=== PATIENT | male | born 1940 | race Hispanic/Latino ===

== ENCOUNTER 2019-11-28 11:15 | Inpatient (IN) | payer MEDICARE, OTHER ==
[~2019-11-28] VITALS: Ht 172.7 cm; Wt 87.5 kg
[2019-11-28] MEDS ORDERED: IBUPROFEN 600 MG TAB PO STA (13:01)
--- NOTE | 2019-11-28 13:32 | NUR ---
PER ER MD PATIENT HAD A RUN OFF IRREGULAR HEART RHYTHM POSSIBLE VTACH.
[2019-11-28 13:34] LABS: BASOPHILS % 0.2 % (0.0-1.0); EOSINOPHILS % 0.1 % (0.0-6.0); HEMATOCRIT 35.1 % (38.2-49.6); HEMOGLOBIN 11.3 g/dL (14.0-18.0); LYMPHOCYTES # (AUTO) 0.5 (1.0-3.2); LYMPHOCYTES % 4.7 % (18.0-39.1); MEAN CORPUSCULAR HEMOGLOBIN 30.1 pg (28-32); MEAN CORPUSCULAR HGB CONC 32.2 g/dL (31-35); MEAN CORPUSCULAR VOLUME 93.4 fL (81-99); MONOCYTES # (AUTO) 0.5 (0.2-0.8); MONOCYTES % 4.7 % (4.4-11.3); NEUTROPHILS # (AUTO) 9.3 (2.1-6.9); NEUTROPHILS % 89.7 % (38.7-80.0); PLATELET COUNT 232 x10e3/uL (140-360); RED BLOOD COUNT 3.76 x10e6/uL (4.3-5.7); RED CELL DISTRIBUTION WIDTH 14.9 % (11.7-14.4)
[2019-11-28 13:49] LABS: ALANINE AMINOTRANSFERASE 25 IU/L (0-55); ALBUMIN 3.5 g/dL (3.5-5.0); ALKALINE PHOSPHATASE 97 IU/L (40-150); ANION GAP 14.7 mmol/L (8-16); BLOOD UREA NITROGEN 10 mg/dL (7-26); BUN/CREATININE RATIO 15 (6-25); CALCIUM 10.4 mg/dL (8.4-10.2); CARBON DIOXIDE 23 mmol/L (22-29); CHLORIDE 100 mmol/L (98-107); CREATINE KINASE 163 IU/L (30-200); CREATININE, SERUM 0.68 mg/dL (0.72-1.25); EST GLOMERULAR FILTRATION RATE > 60 ML/MIN (60-); GLUCOSE 372 mg/dL (74-118); POTASSIUM 4.7 mmol/L (3.5-5.1); SODIUM 133 mmol/L (136-145)
[2019-11-28] MEDS ORDERED: AMIODARONE HCL 150 MG/100 ML BAG IV ONE (13:50)
[2019-11-28] MEDS ORDERED: AMIODARONE HCL 900 MG in DEXTROSE 5 % 500ML BOTTLE 500 ML IV SCH (14:00)
[2019-11-28] MEDS ORDERED: INSULIN REGULAR, HUMAN 100 UNIT/1 ML 3ML VIAL SQ ONE (14:15)
--- NOTE | 2019-11-28 14:35 | Diagnostic Imaging Report ---
Examination: CT CERVICAL SPINE WO CONTRAST HISTORY:Neck injury after fall. COMPARISON:None. TECHNIQUE: Multidetector helical axial images were obtained without contrast from the foramen magnum to T1. Coronal and sagittal reformatted images were done. Bone and soft tissue windows were evaluated. Dose modulation, iterative reconstruction, and/or weight based adjustment of the mA/kV was utilized to reduce the radiation dose to as low as reasonably achievable. FINDINGS: Alignment:Normal alignment with straightening of normal lordosis. Vertebrae: Normal height and density. No acute fracture, infection or neoplasm. Disc space heights: Moderately narrowed at C5-C6. Caliber of spinal canal: Developmentally normal. Posterior fossa and craniocervical junction: Foramen magnum patent. No Chiari 1 malformation. Soft tissues: A large dystrophic calcification is identified in the region of the right submandibular gland, measuring 1.8 cm and likely represents a stone within an atrophic gland. Degenerative changes: Severe degenerative narrowing at C1-C2. Diffuse disc osteophyte complexes at C5-C6 and C6-C7 with bilateral uncovertebral and facet arthropathy resulting in severe right and mild left neural foraminal narrowing at C5-C6 and mild bilaterally at C6-C7. No canal stenosis at either level. Bilateral facet arthropathy from C2 through C7. Visualized lung apices: No abnormalities. IMPRESSION: 1. No acute abnormalities, specifically, no acute fracture. 2. Degenerative changes, as above. Signed by: Dr. Caitie Whittaker M.D. on 11/28/2019 2:33 PM
--- NOTE | 2019-11-28 14:40 | NUR ---
UNABLE TO VERIFY HOME MEDICATIONS, WAS PROVIDED LIST BY EMS BUT UNABLE TO OBTAIN DOSAGE. ASKED DAUGHTER WHO WAS AT BEDSIDE TO EITHER CALL PATIENTS PHARMACY AND OR HAVE SOMEONE WHO IS AT PATIENTS HOME TO TAKE A PICTURE OF MEDICATION BOTTLES IN ORDER TO OBTAIN DOSAGES.
[2019-11-28] MEDS ORDERED: KETOROLAC TROMETHAMINE 30 MG/ML VIAL IV STA (15:04)
[2019-11-28] MEDS ORDERED: FINASTERIDE5 MG PO (15:07)
[2019-11-28] MEDS ORDERED: LEVEMIR100 UNIT/1 SC (15:11)
[2019-11-28] MEDS ORDERED: LEXAPRO10 MG PO (15:11)
[2019-11-28] MEDS ORDERED: LASIX40 MG PO (15:11)
[2019-11-28] MEDS ORDERED: FLOMAX0.4 MG PO (15:11)
[2019-11-28] MEDS ORDERED: ASPIR 8181 MG PO (15:11)
--- NOTE | 2019-11-28 15:36 | Diagnostic Imaging Report ---
EXAM: CT Chest WITHOUT intravenous contrast 11/28/2019 12:59 PM INDICATION: Trauma COMPARISON: None TECHNIQUE: Chest was scanned utilizing a multidetector helical scanner from the lung apex through the level of the adrenal glands without administration of IV contrast. Coronal and sagittal reformations were obtained. Routine protocol was performed. IV CONTRAST: None RADIATION DOSE: Total DLP: 695.3 mGy*cm. Dose modulation, iterative reconstruction, and/or weight based adjustment of the mA/kV was utilized to reduce the radiation dose to as low as reasonably achievable. COMPLICATIONS: None FINDINGS: LINES/ TUBES: None. LUNGS AND AIRWAYS: The central airways are patent. Right upper lobe, lower lobe, and left lower lobe dependent subsegmental atelectasis. No focal consolidation or pulmonary edema. No pulmonary contusion. PLEURA: No pneumothorax. No pleural effusion. HEART AND MEDIASTINUM: The thyroid gland is normal. No supraclavicular or axillary lymphadenopathy. Multiple prominent mediastinal lymph nodes not meeting size criteria for lymphadenopathy. No hilar lymphadenopathy. Mild cardiomegaly. No pericardial effusion. Mild scattered atherosclerotic calcifications of the coronary arteries and aorta. UPPER ABDOMEN: No acute findings. BONES: No acute osseous injury. No suspicious lytic or blastic lesions. Mild multilevel degenerative changes of the visualized spine. SOFT TISSUES: Unremarkable. IMPRESSION: No acute traumatic injury to the thorax. No focal pneumonia or pulmonary edema. Dependent subsegmental atelectasis as above. Mild cardiomegaly. Signed by: Joss Marley MD on 11/28/2019 3:33 PM
[2019-11-28] MEDS ORDERED: ONDANSETRON HCL INJ 2MG/ML 2ML 2 MG/ML VIAL IV PRN (15:45)
[2019-11-28] MEDS ORDERED: SODIUM CHLORIDE FLUSH 10 ML SYR IV PRN (15:45)
--- NOTE | 2019-11-28 15:57 | NUR ---
per ER stop Amiodarone drip. stopped medication per his request.
--- NOTE | 2019-11-28 16:12 | NUR ---
recheck blood sugar 342
--- OUTSIDE RECORDS SUMMARY | 2019-11-28 16:20 | XMS REPORT ---
Author Author [facility] Organization [facility] Address Unknown Phone Unavailable Care Team Providers Care Enrollment Consultant Name Role Phone Frankie WELLINGTON Unavailable Unavailable Payers Payer Name Policy Type Policy Number Effective Date Expiration Date Problems This patient has no known problems. Allergies, Adverse Reactions, Alerts Allergy Name Allergy Type Status Severity Reaction(s) Onset Date Inactive Date Treating Clinician Comments No Known Allergies DA Active U 2014-12-27 00:00:00 Medications This patient has no known medications. Results Test Description Test Time Test Comments Text Results Atomic Results Result Comments CT CHEST WO 2019-11-28 15:25:00 [facility] [address] [place] [address] Patient Name: FREDY HAWKINS MR #: [id number] : 1940 Age/Sex: 79/M Req #: [id number] Adm Physician: Ordered by: ETELVINA WELLINGTON MD Report #: [id number] Location: ER Room/Bed: Procedure: [id number] CT/CT CHEST WO Exam Date: 11/28/19 Exam Time: 1330 REPORT STATUS: Signed EXAM: CT Chest WITHOUT intravenous contrast 11/28/2019 12:59 PM INDICATION: Trauma COMPARISON: None TECHNIQUE: Chest was scanned utilizing a multidetector helical scanner from the lung apex through the level of the adrenal glands without administration of IV contrast. Coronal and sagittal reformations were obtained. Routine protocol was performed. IV CONTRAST: None RADIATION DOSE: Total DLP: 695.3 mGy*cm. Dose modulation, iterative reconstruction, and/or weight based adjustment of the mA/kV was utilized to reduce the radiation dose to as low as reasonably achievable. COMPLICATIONS: None FINDINGS: LINES/ TUBES: None. LUNGS AND AIRWAYS: The central airways are patent. Right upper lobe, lower lobe, and left lower lobe dependent subsegmental atelectasis. No focal consolidation or pulmonary edema. No pulmonary contusion. PLEURA: No pneumothorax. No pleural effusion. HEART AND MEDIASTINUM: The thyroid gland is normal. No supraclavicular or axillary lymphadenopathy. Multiple prominent mediastinal ly mph nodes not meeting size criteria for lymphadenopathy. No hilar lymphadenopathy. Mild cardiomegaly. No pericardial effusion. Mild scattered atherosclerotic calcifications of the coronary arteries and aorta. UPPER ABDOMEN: No acute findings. BONES: No acute osseous injury. No suspicious lytic or blastic lesions. Mild multilevel degenerative changes of the visualized spine. SOFT TISSUES: Unremarkable. IMPRESSION: No acute traumatic injury to the thorax. No focal pneumonia or pulmonary edema. Dependent subsegmental atelectasis as above. Mild cardiomegaly. Signed by: Daija Cronin MD on 11/28/2019 3:33 PM Dictated By: DAIJA CRONIN MD [id number] Transcribed By: ARABELLA on 11/28/19 1533 COPY TO: ETELVINA WELLINGTON MD CT CERVICAL SPINE WO 2019-11-28 14:24:00 [place] [address] Patient Name: FREDY HAWKINS MR #: [id number] : 1940 Age/Sex: 79/M Req #: [id number] Adm Physician: Ordered by: ETELVINA WELLINGTON MD Report #: [id number] Location: ER Room/Bed: Procedure: [id number] CT/CT CERVICAL SPINE WO Exam Date: 11/28/19 Exam Time: 1330 REPORT STATUS: Signed Examination: CT CERVICAL SPINE WO CONTRAST HIST ORY:Neck injury after fall. COMPARISON:None. TECHNIQUE: Multidetector helical axial images were obtained without contrast from the foramen magnum to T1. Coronal and sagittal reformatted images were done. Bone and soft tissue windows were evaluated. Dose modulation, iterative reconstruction, and/or weight based adjustment of the mA/kV was utilized to reduce the radiation dose to as low as reasonably achievable. FINDINGS: Alignment:Normal alignment with straightening of normal lordosis. Vertebrae: Normal height and density. No acute fracture, infection or neoplasm. Disc space heights: Moderately narrowed at C5-C6. Caliber of spinal canal: Developmentally normal. Posterior fossa and craniocervical junction: Foramen magnum patent. No Chiari 1 malformation. Soft tissues: A large dystrophic calcification is identified in the region of the right submandibular gland, measuring 1.8 cm and likely represents a stone within an atrophic gland. Degenerative changes: Severe degenerative narrowing at C1-C2. Diffuse disc osteophyte complexes at C5-C6 and C6-C7 with bilateral uncovertebral and facet arthropathy resulting in severe right and mild left neural foraminal narrowing at C5-C6 and mild bilaterally at C6-C7. No canal stenosis at either level. Bilateral facet arthropathy from C2 through C7. Visualized lung apices: No abnormalities. IMPRESSION: 1. No acute abnormalities, specifically, no acute fracture. 2. Degenerative changes, as above. Signed by: Dr. Caitie Whittaker M.D. on 11/28/2019 2:33 PM Dictated By: CAITIE LLAMAS MD 1433 Transcribed By: ARABELLA on 11/28/19 1433 COPY TO: ETELVINA WELLINGTON MD
--- NOTE | 2019-11-28 16:45 | NUR ---
Paged admit MD in order to get order for sliding scale. awaiting for call back
--- NOTE | 2019-11-28 17:09 | NUR ---
Emre mendoza in [facility] - 11/28/19 at 1744 by [facility] patients menard bag changed to a leg back. Total output 500 mL.
--- NOTE | 2019-11-28 17:42 | NUR ---
spoke with Dr. Kellogg regarding order for insulin. Was told to place order in for Novalog low dose protocol [facility], order read back and confirmed.
--- NOTE | 2019-11-28 17:56 | NUR ---
another call placed out to Dr. Kellogg to verify insulin order. Upon attempting to place order discovered there is no low dose sliding scale for Novolog.
[2019-11-28] MEDS ORDERED: DEXTROSE 50% SYRINGE 50 ML IV PRN (18:45)
--- NOTE | 2019-11-28 18:46 | NUR ---
spoke with Dr. Kellogg was told to change insulin order to regular insulin slinding scale [facility].
--- NOTE | 2019-11-28 19:08 | NUR ---
report given to Yasir MANN
[2019-11-28] MEDS ORDERED: AMIODARONE 900MG 500 ML IV SCH (20:01)
[2019-11-28] MEDS: INSULIN REGULAR, HUMAN 100 UNIT/1 ML 3ML VIAL SQ SCH (22:45)
--- NOTE | 2019-11-29 01:38 | Consultation ---
DATE OF CONSULTATION: 11/28/2019 Cardiac Consultation REASON FOR CONSULTATION: Ventricular tachycardia. HISTORY: 79-year-old gentleman, poor historian, he is really not having good quality of life on the account of severe lymphedema of few years duration, multiple foot ulcers in addition to cervical spine stenosis and weakness of the upper extremities and barely he can move the lower extremities with bilateral foot drop. The patient is almost bedridden. He used to see a physician and subsequently changed to another physician, who come see him at home. His quality of life is very poor. He barely can move from here to there. He does have hospital bed. He does have excellent family support with his daughters helping him. Today, he sustained a fall. He denied having any syncope. He had trauma to his chest. He came to the emergency room and he was sent to CT scan. All of suddenly, it was noted that he had a run of ventricular tachycardia, prolonged, and he subsequently converted to sinus bradycardia. Cardiac consultation was obtained. I visited with the patient, who is really bedridden. He cannot do much of activity if any. He does have chronic swelling of his lower extremities. He is depressed about his quality of life and he is unhappy about all his condition. His arms, he cannot hold them. If I raised his arm and it come down. He barely can grab things by his fingers. He is not interested in any surgery or any treatment. REVIEW OF SYSTEMS: GENERAL: No fever. No chills. HEENT: No hearing problem. No vision problem. PULMONARY: Secretion and he need suctioning and he sometimes choke on his own secretion. CARDIAC: He denied having any angina, but he is bedridden for few years. GI: Good appetite. No constipation. No diarrhea. : Incontinence of urine. EXTREMITIES: Lower extremity, severe lymphedema of many years duration, bilateral foot drop. NEUROLOGY: Bilateral foot drop, severe weakness of both upper extremities. The patient is bedridden and he need help with movement and doing minor activities if any. HEMATOLOGY: No easy bruising or bleeding. SOCIAL HISTORY: He lost his . He is nonsmoker and non-alcohol drinker. He was working multiple jobs before alf. HOME MEDICATIONS: Include; aspirin 81 mg a day, Lasix 40 mg 2 tablets a day, Lexapro 10 mg a day, Fenestrate 5 mg a day, Flomax 0.4 mg a day, Lantus insulin 20 units at bedtime, and 4 units of Humalog t.i.d. ALLERGIES: NONE. PAST MEDICAL HISTORY: Chronic lymphedema of the lower extremities, diabetes mellitus for 30 years, prostate problem and incontinence, severe cervical spine disease, refused surgery; bilateral arm weakness, bedridden, history of bradycardia, several debridements on the lower extremities and treatment for lymphedema, bilateral eyelid surgeries, umbilical hernia surgery. FAMILY HISTORY: No family history of premature coronary artery disease. PHYSICAL EXAMINATION: VITAL SIGNS: Height of 5 feet 8 inches, weight of 175 pounds, blood pressure 110/60, heart rate 50, and respiratory rate 18. HEENT: Redness is noted in both eyes. NECK: No elevation of jugular venous pulsation. CHEST: Bilateral coarse crackles. HEART: PMI, 5th left intercostal space. Normal first and second heart sounds. ABDOMEN: Obese and soft. EXTREMITIES: Severe lymphedema, severe skin changes, bilateral foot drop. NEUROLOGIC: Bilateral foot drop. He cannot move his lower extremities. His arms, both of them are very weak with decreased hand institutional nutrition consultant and he cannot raise them and if when we raise his arm, they will fall. LABORATORY DATA: Sodium of 133, potassium 4.7, BUN of 10, creatinine of 0.7. White blood cell count of 10.4, hemoglobin 12.3, hematocrit 35%, platelet count of 232,000. EKG, normal sinus rhythm, nonspecific ST changes. Sinus bradycardia. Review of telemetry, runs of ventricular tachycardia, prolonged. IMPRESSION AND PLAN: 1. Debilitative status. 2. Severe lymphedema. 3. Cervical spine disease with possible compression leading to arm weakness and lower extremity weakness. 4. Incontinence of urine. 5. Diabetes mellitus with severe end-organ damage. 6. Depression. 7. Nonsustained ventricular tachycardia. 8. Almost certain the patient does have coronary artery disease. 9. Pulmonary embolism with the probability, but CT scan is negative. Cardiac-gallegos, we will recommend telemetry, observation on telemetry, serial cardiac enzymes, echocardiogram, venous Doppler, and follow cardiac enzymes. We have very lengthy discussion with the patient, his daughters at bedside. In very lengthy discussion, he wants very conservative approach. He is considering DNR status. However, he will make a final decision tomorrow. We will follow the patient's progression with you. Thank you for your kind referral. Total patient time care of more than 100 minutes. MD MAMADOU Leiva/MAU /[id number]
[2019-11-29] MEDS ORDERED: NOVOLOG100 UNITS1 SQ (03:16)
[2019-11-29] MEDS ORDERED: ATORVASTATIN CA10 MG PO (03:21)
[2019-11-29 04:35] LABS: BASOPHILS % 0.2 % (0.0-1.0); EOSINOPHILS # (AUTO) 0.1 (0.0-0.4); HEMATOCRIT 39.8 % (38.2-49.6); HEMOGLOBIN 12.9 g/dL (14.0-18.0); LYMPHOCYTES # (AUTO) 1.1 (1.0-3.2); LYMPHOCYTES % 12.4 % (18.0-39.1); MEAN CORPUSCULAR HEMOGLOBIN 29.4 pg (28-32); MEAN CORPUSCULAR HGB CONC 32.4 g/dL (31-35); MEAN CORPUSCULAR VOLUME 90.7 fL (81-99); MONOCYTES # (AUTO) 0.7 (0.2-0.8); MONOCYTES % 8.4 % (4.4-11.3); NEUTROPHILS # (AUTO) 6.7 (2.1-6.9); NEUTROPHILS % 77.2 % (38.7-80.0); PLATELET COUNT 324 x10e3/uL (140-360); RED BLOOD COUNT 4.39 x10e6/uL (4.3-5.7); RED CELL DISTRIBUTION WIDTH 14.9 % (11.7-14.4)
[2019-11-29 04:45] LABS: INR 0.92; PROTHROMBIN TIME 12.9 seconds (11.9-14.5)
[2019-11-29 04:46] LABS: PARTIAL THROMBOPLASTIN TIME 29.9 seconds (23.8-35.5)
[2019-11-29 04:52] LABS: ALANINE AMINOTRANSFERASE 19 IU/L (0-55); ALBUMIN 3.2 g/dL (3.5-5.0); ALBUMIN/GLOBULIN RATIO 0.9 (0.8-2.0); ALKALINE PHOSPHATASE 96 IU/L (40-150); ANION GAP 14.7 mmol/L (8-16); BLOOD UREA NITROGEN 13 mg/dL (7-26); BUN/CREATININE RATIO 19 (6-25); CALCIUM 10.5 mg/dL (8.4-10.2); CARBON DIOXIDE 25 mmol/L (22-29); CHLORIDE 100 mmol/L (98-107); CHOL/HDL RATIO 2.8 (3.9-4.7); CHOLESTEROL 136 MD/DL (0-199); CREATININE, SERUM 0.67 mg/dL (0.72-1.25); EST GLOMERULAR FILTRATION RATE > 60 ML/MIN (60-); GLUCOSE 249 mg/dL (74-118); HDL CHOLESTEROL 48 MG/DL (40-60); LDL CHOLESTEROL 76 MG/DL (60-130); POTASSIUM 4.7 mmol/L (3.5-5.1); SODIUM 135 mmol/L (136-145); TRIGLYCERIDES 59 MG/DL (0-149)
[2019-11-29 05:00] LABS: CREATINE KINASE MB 6.1 ng/mL (0-5.0)
[2019-11-29 05:38] LABS: THYROID STIMULATING HORMONE 2.101 uIU/mL (0.350-4.940)
--- NOTE | 2019-11-29 05:45 | NUR ---
PT HAS NOT VOIDED SINCE RN ARRIVAL ON SHIFT. BLADDER SCAN SHOWED 400 mL URINE. PT UNABLE TO VOID AT THIS TIME. ORDER OBTAINED, 18 FR COUDE PICKETT CATHETER INSERTED WITHOUT COMPLICATIONS. 450 mL IMMEDIATELY RETURNED IN PICKETT BAG. SAMPLE OBTAINED FOR UA.
[2019-11-29 06:26] LABS: CLARITY,URINE CLEAR (CLEAR); COLOR,URINE YELLOW (YELLOW)
[2019-11-29 06:27] LABS: LEUKOCYTE ESTERASE ,URINE NEGATIVE (NEGATIVE); NITRITE,URINE NEGATIVE (NEGATIVE); PROTEIN,URINE DIPSTICK NEGATIVE (NEGATIVE)
[2019-11-29 06:28] LABS: BACTERIA,URINE RARE /HPF; BILIRUBIN,URINE NEGATIVE (NEGATIVE); EPITHELIAL CELLS,URINE FEW /LPF; KETONES,URINE 1+ (NEGATIVE); RBC,URINE 0-5 /HPF (0-5); URINE UROBILINOGEN 0.2 mg/dL (0.2 - 1); WBC,URINE (MAN) 0-5 /HPF (0-5)
[2019-11-29] MEDS: INSULIN REGULAR, HUMAN 100 UNIT/1 ML 3ML VIAL SQ SCH ×4 (07:30→21:42)
--- NOTE | 2019-11-29 09:11 | NUR ---
Attempting to give patient po medications, patient coughing and choking after taking a few sips of water. Patient Georgian speaking only, scheduling representative assisted with neuro exam. Patient has bilateral weak hand grasps, difficulty following commands. Pt limited in following commands due to generalized weakness. Per Dr. Lee Ok to hold insulin and po meds at this time due to NPO due to swallowing issues. Called Dr. Kellogg answering service to notify of symptoms and request swallow consult. Dr. Lee ordered head CT.
[2019-11-29] MEDS: FINASTERIDE 5 MG TAB PO SCH (09:18)
[2019-11-29] MEDS: TAMSULOSIN HCL 0.4 MG CAP PO SCH (09:19)
[2019-11-29] MEDS: INSULIN LISPRO 100 UNIT/1 ML 3ML VIAL SQ SCH ×2 (09:19→16:33)
--- NOTE | 2019-11-29 09:33 | NUR ---
per dr alan barton order consult with dr julio and dr lin alonso for neuro and speech swallow test; orders repeated back and confirmed
--- NOTE | 2019-11-29 09:45 | NUR ---
Spoke with Dr. Elizabeth and order given for MRI of Cervical Spine Stat given per telephone. Read back.
--- NOTE | 2019-11-29 10:08 | NUR ---
Spoke with Dr. Cortez, he will accept the patient as a consult. Radiology reports occupational therapy technician will be paged to come and perform stat MRI.
--- NOTE | 2019-11-29 11:06 | NUR ---
Per Marlyn Estrada patient is DNR and can be downgraded to med-surg level of care.
[2019-11-29] MEDS ORDERED: POTASSIUM CHLORIDE 20 MEQ TAB CR PO SCH (11:30)
--- NOTE | 2019-11-29 11:40 | Consultation ---
DATE OF CONSULTATION: 11/29/2019 Pulmonary Critical Care Consultation CHIEF COMPLAINT: Cardiac arrhythmias, spinal stenosis, and debility. HISTORY OF PRESENT ILLNESS: The patient is a 79-year-old man. He has a history of cervical spine stenosis and weakness in the upper extremities as well as footdrop in the lower extremities. He has severe lymphedema. He has very poor ambulation at home. He also has some type of cardiac history and a pacemaker was previously recommended. Apparently, he was trying to transfer to the bathroom when he fell and bruised his chest. He came in complaining of rib pain and chest pain from the trauma. In the emergency department, he had some nonsustained ventricular tachycardia and some bradycardia. He was seen in consultation by Cardiology. They recommended an echocardiogram as well as monitoring. PAST MEDICAL HISTORY: 1. Degenerative disease of the cervical spine with some spine stenosis. Apparently, he has been evaluated previously by a surgeon. 2. Chronic lymphedema. 3. Diabetes mellitus. 4. Bradycardia and prior cardiac disease. PAST SURGICAL HISTORY: 1. Prior eyelid surgery. 2. Prior debridements. 3. Umbilical hernia surgery. FAMILY HISTORY: Family history is noncontributory. SOCIAL HISTORY: The patient is not a smoker or drinker. ALLERGIES: THERE ARE NO KNOWN DRUG ALLERGIES. REVIEW OF SYSTEMS: The patient has no headache. The patient has no fever. The patient is not having any neck pain. He complains of bruising and discomfort in his chest. He also complains of generalized weakness and pain. He is not having any abdominal pain specifically. There is no nausea or vomiting. He does report leg swelling. He has some early decubitus wounds on his heels. PHYSICAL EXAMINATION: VITAL SIGNS: The patient is afebrile. The vital signs are significant for a blood pressure of 153/75 with a pulse of 55. Saturation is 99%. HEENT: Shows no facial swelling or erythema. CARDIAC: Reveals slow heart rate with a normal S1 and S2. LUNGS: Auscultation of lungs reveals decreased breath sounds at the bases. There is no wheezing. ABDOMEN: Soft and nontender. There is no rebound or guarding. EXTREMITIES: Shows 2 to 3+ leg edema. NEUROLOGICAL: Shows weakness in all extremities, more so in the legs than the arms. LABORATORY DATA: White blood cell count is 8.7 and the hemoglobin is 12.9. The platelet count is 324. The BUN to creatinine ratio is 13 to 0.67, and the other electrolytes are within normal limits. Blood sugar is 258. Urinalysis is normal. RADIOGRAPHIC DATA: CT of the cervical spine shows severe degenerative narrowing at C1-C2. There is bilateral severe right and left neural foraminal narrowing at C5-C6 and C6-C7. There is also diffuse facet arthropathy. CT scan of the chest shows no acute trauma. There is some dependent atelectasis and some mild cardiomegaly. IMPRESSION: 1. Intermittent bradycardia related to prior cardiac disease. 2. [id number], unspecified heart failure. 3. Severe lymphedema. 4. Severe degenerative disease in the cervical spine with severe neural foraminal stenosis at C5-C6 and C6-C7. 5. Diabetes. 6. Decubitus ulcers, present on admission. PLAN: 1. The patient will continue current diabetic regimen. 2. The patient is being loaded with amiodarone. 3. Await echocardiogram and completion of Cardiology evaluation. 4. Prognosis is poor. 5. Consider Neurology consultation. John Kevin MD [facility] /[id number]
--- NOTE | 2019-11-29 11:57 | NUR ---
Patient currently receiving CT scan, will check BG level when patient returns.
--- NOTE | 2019-11-29 12:34 | Diagnostic Imaging Report ---
Examination: CT Head without Contrast History:Trauma Comparison studies: None Technique: Axial images were obtained from the skull base to the vertex. Coronal and sagittal images reconstructed from the axial data. Dose modulation, iterative reconstruction, and/or weight based adjustment of the mA/kV was utilized to reduce the radiation dose to as low as reasonably achievable. Intravenous contrast: None Findings: Scalp/skull: No abnormalities. Extra-axial spaces: No masses. No fluid collections. Brain sulci: Mildly prominent. Ventricles: Mild compensatory dilatation. No hydrocephalus. Parenchyma: Periventricular hypodensities in the supratentorial white matter are small vessel ischemic changes. No masses, hemorrhage, acute or chronic cortical vascular insults. Sellar/suprasellar region: No abnormalities. Craniocervical junction: Patent foramen magnum. No Chiari one malformation. Incidental findings: Atherosclerotic calcifications in the carotid siphons . Impression: No acute abnormalities. Chronic findings: 1. Mild generalized volume loss. 2. Mild supratentorial white matter small vessel ischemic changes. The images and preliminary report were reviewed and signed by Dr. Caitie Whittaker, neuroradiology faculty, on 11/29/2019 at 1543 hours. Signed by: Dr. Caitie Whittaker M.D. on 11/29/2019 3:44 PM
--- NOTE | 2019-11-29 12:46 | Diagnostic Imaging Report ---
Examination: MRI Cervical Spine without Contrast History: History of fall Comparison studies: CT of the cervical spine 11/28/2019 Technique: Sagittal T1, T2 and IR, axial T2 and axial gradient echo Intravenous contrast: None Findings: This study is severely motion degraded, and every axial sequences side from the axial T2 fast spin echo is nondiagnostic. The axial T2 fast spin echo is still severely motion degraded. The sagittal sequences are mild to moderately motion degraded as well. Within these limiting constraints, the following findings are identified. Alignment: Minimal straightening of the normal cervical lordosis is present. There is grade 1 anterolisthesis of C5 on C6 and C7 on T1 and mild to moderate canal stenosis at C7-T1. Cervicomedullary junction: Patent foramen magnum. Soft tissues: No obvious edematous changes on the sagittal STIR. Spinal cord: No obvious edematous changes on the sagittal T2 and STIR sequences. Vertebrae: Normal in height. Scattered fatty type endplate changes are present, most notably anteriorly at C5-C6. No osseous edema on the sagittal STIR weighted sequence. Degenerative changes: Cannot be accurately evaluated on this motion degraded examination. IMPRESSION: Borderline nondiagnostic examination secondary to motion. Within these constraints, no definite spinal cord or osseous edema is identified. Mild to moderate canal stenosis at C7-T1 due to grade I anterolisthesis and ligamentum flavum thickening. The images and preliminary report were reviewed and signed by Dr. Caitie Whittaker, neuroradiology faculty, on 11/29/2019 at 1456 hours. Signed by: Dr. Caitie Whittaker M.D. on 11/29/2019 2:58 PM
[2019-11-29] MEDS: MORPHINE SULFATE 2 MG/ML SYR 1ML IV PRN ×3 (13:09→21:42)
--- NOTE | 2019-11-29 16:00 | NUR ---
The pt. was received from the ER via bed to room 113 with chest wall contusion and non sustained VT. The pt. is currently in sinus bradycardia rate 54. The pt. is supposed to be DNR per request of the pt.'s family and Dr. Estrada. He is awake and alert with no complaint. The family reports that the pt. has morning phlegm in copious amts and they use mucinex to help with this. A call was placed to Dr. Kellogg for orders and he returned the call orders received. Dr. Elizabeth called in to report that the pt. does not have c spine stenosis therefore he does not need to see the pt.
[2019-11-29 16:15] VITALS: BP 143/65
[2019-11-29] MEDS: ENOXAPARIN SOD INJ 40 MG/0.4 ML SYR SC SCH (17:11)
[2019-11-29 17:26] VITALS: BP 143/65
--- NOTE | 2019-11-29 18:00 | NUR ---
During completion of the adm process it was noted that the code status was not changed in the ER prior to transfer and the pt heart rhythm had changed to 3rd degree block rate in the 30's. A call was placed to Chevy Estrada to ascertain that the pt. is indeed a DNR and no other orders were received.
--- NOTE | 2019-11-29 19:00 | NUR ---
RECEIVED PATIENT IN BEDSIDE SHIFT REPORT. PATIENT RESTING IN BED AT THIS TIME. A&OX3 WITH PERIODS OF CONFUSION. MILD PAIN REPORTED TO CHEST WALL AND R KNEE, WILL MEDICATE WHEN APPROPRIATE TIME HAS PASSED. TELE MONITOR ACTIVE. PATIENT HAS YAUNKER SUCTION AND USES NEEDED TO CLEAR MOUTH OF MUCUS AND EXTRA SECRETIONS. FAMILY MEMBERS AT BEDSIDE. BED LOCKED IN LOWEST POSITION, SIDE RAILS UXP2, CALL LIGHT IN REACH. BED ALARM ACTIVE.
[2019-11-29 20:00] VITALS: BP 138/77
[2019-11-29 20:28] VITALS: BP 138/77
[2019-11-29] MEDS: ATORVASTATIN 10 MG TAB PO SCH (21:40)
[2019-11-29] MEDS: INSULIN GLARGINE 100 UNITS/ML VIAL SQ SCH (21:41)
[2019-11-30] VITALS (8 sets, daily range): BP systolic 129–171; BP diastolic 60–76
[2019-11-30] MEDS: MORPHINE SULFATE 2 MG/ML SYR 1ML IV PRN ×2 (04:34→17:28)
[2019-11-30 06:24] LABS: BASOPHILS % 0.2 % (0.0-1.0); EOSINOPHILS # (AUTO) 0.1 (0.0-0.4); EOSINOPHILS % 0.7 % (0.0-6.0); HEMATOCRIT 37.5 % (38.2-49.6); HEMOGLOBIN 11.9 g/dL (14.0-18.0); LYMPHOCYTES # (AUTO) 1.1 (1.0-3.2); MEAN CORPUSCULAR HGB CONC 31.7 g/dL (31-35); MEAN CORPUSCULAR VOLUME 91.5 fL (81-99); MONOCYTES # (AUTO) 0.8 (0.2-0.8); MONOCYTES % 7.6 % (4.4-11.3); NEUTROPHILS # (AUTO) 8.6 (2.1-6.9); NEUTROPHILS % 80.8 % (38.7-80.0); PLATELET COUNT 350 x10e3/uL (140-360); RED CELL DISTRIBUTION WIDTH 14.9 % (11.7-14.4)
[2019-11-30 06:46] LABS: ALANINE AMINOTRANSFERASE 14 IU/L (0-55); ALBUMIN 2.8 g/dL (3.5-5.0); ALBUMIN/GLOBULIN RATIO 0.9 (0.8-2.0); ALKALINE PHOSPHATASE 82 IU/L (40-150); ANION GAP 10.1 mmol/L (8-16); BLOOD UREA NITROGEN 12 mg/dL (7-26); BUN/CREATININE RATIO 21 (6-25); CALCIUM 9.7 mg/dL (8.4-10.2); CARBON DIOXIDE 25 mmol/L (22-29); CHLORIDE 105 mmol/L (98-107); CREATININE, SERUM 0.56 mg/dL (0.72-1.25); EST GLOMERULAR FILTRATION RATE > 60 ML/MIN (60-); GLUCOSE 160 mg/dL (74-118); POTASSIUM 4.1 mmol/L (3.5-5.1); SODIUM 136 mmol/L (136-145)
[2019-11-30] MEDS: INSULIN LISPRO 100 UNIT/1 ML 3ML VIAL SQ SCH ×3 (07:30→16:59)
[2019-11-30] MEDS: INSULIN REGULAR, HUMAN 100 UNIT/1 ML 3ML VIAL SQ SCH ×4 (07:30→22:12)
[2019-11-30] MEDS ORDERED: FUROSEMIDE 40 MG TAB PO SCH ×2 (08:00→11:30)
[2019-11-30] MEDS: FUROSEMIDE INJ 10 MG/ML 4 ML VIAL IV SCH ×2 (10:27→17:24)
[2019-11-30] MEDS: TAMSULOSIN HCL 0.4 MG CAP PO SCH (10:32)
[2019-11-30] MEDS: ASPIRIN 81 MG CHEW TAB PO SCH (10:32)
[2019-11-30] MEDS: ESCITALOPRAM OXALATE 10 MG TAB PO SCH (10:34)
[2019-11-30] MEDS: GUAIFENESIN 600 MG TAB PO SCH ×2 (10:35→17:02)
[2019-11-30] MEDS: POTASSIUM CHLORIDE 20 MEQ TAB CR PO SCH ×2 (10:35→22:10)
[2019-11-30] MEDS: FINASTERIDE 5 MG TAB PO SCH (10:35)
--- NOTE | 2019-11-30 11:54 | Progress Note ---
DATE: 11/30/2019 SUBJECTIVE: The patient was seen by Neurology this morning. He ordered an MRI of the neck. The patient states that his arthritis and neck problems have been present for some time. PHYSICAL EXAMINATION: VITAL SIGNS: The patient is afebrile. The blood pressure is 129/70 and saturation is 99%. Pulse is 55. HEENT: Shows no facial swelling or erythema. CARDIAC: Reveals regular rate and rhythm with normal S1 and S2. LUNGS: Auscultation of lungs reveals rhonchorous breath sounds bilaterally. There is no wheezing. ABDOMEN: Soft, nontender. There is no rebound or guarding. EXTREMITIES: Show 3+ leg edema. The patient also has weakness in the lower extremities. LABORATORY DATA: BUN to creatinine ratio is normal. Other electrolytes are within normal limits. CBC is normal. IMPRESSION: 1. Acute on chronic heart failure. 2. History of atrial fibrillation and bradycardia. 3. Degenerative disease of the cervical spine. 4. Diabetes. 5. Decubitus ulcer present on admission. PLAN: 1. Continue current diabetic regimen. 2. Continue current Cardiology regimen. 3. Await MRI and completion of Neurology evaluation. John Kevin MD [facility] /[id number]
[2019-11-30] MEDS: ALBUTEROL/IPRATROPIUM 3 ML NEB NEB PRN ×2 (15:20→23:10)
--- NOTE | 2019-11-30 15:20 | NUR ---
SPOKE WITH FAMILY AT BEDSIDE WHO STATES PT IS CONSTIPATED AND HAS NOT HAD BM IN [address] ESCUDERO FOR ORDERS. AWAITING CALLBACK.
[2019-11-30] MEDS ORDERED: MAGNESIUM HYDROXIDE 30 ML UDC PO NR (16:00)
[2019-11-30] MEDS: DOCUSATE SODIUM 100 MG CAP PO SCH (17:02)
[2019-11-30] MEDS: ENOXAPARIN SOD INJ 40 MG/0.4 ML SYR SC SCH (17:02)
--- NOTE | 2019-11-30 17:20 | Consultation ---
DATE OF CONSULTATION: Neurology Consultation REASON FOR CONSULTATION: Encephalopathy. HISTORY OF PRESENT ILLNESS: Mr. Barajas is a 79-year-old gentleman, who comes to my attention for high-grade stenosis of the spinal canal, debility, weakness, delirium, may be depression. He is a 79-year-old man, history of cervical spine disease, bilateral upper extremity weakness and foot drop, lymphedema, minimally ambulatory and apparently also quite confused. The patient was started to have some left diffusely weak throughout. The patient answers all my questions with one-word answers, yes and no and he states that he is fine. He does not have any acute complaints. PRIOR MEDICAL HISTORY: Includes diabetes, bradycardia, lymphedema, and spinal cord injury. REVIEW OF SYSTEMS: He has no acute complaints. No headache. No chest pain. No nausea. No vomiting. He does endorse to chronic weakness and general discomfort, but no acute neurological symptoms or no focal dysfunction. A 14-point review of systems otherwise negative. PHYSICAL EXAMINATION: VITAL SIGNS: He is afebrile. His blood pressure is 153/75, his heart rate is about 52, but feels regular. HEENT: Extraocular muscles intact. Face symmetric. Tongue is midline. Speech is clear, but hesitant and slow, primarily in Greenlandic. PULMONARY: Clear to auscultation. ABDOMEN: Soft, nontender. CARDIOVASCULAR: Bradycardic. EXTREMITIES: Edema in the bilateral extremities with some ulcerations. NEUROLOGIC: He is diffusely weak. His strength in the bilateral upper extremities is about 4+/5, lower extremities are 3/5. Reflexes are diminished in uppers and lowers. He is not ataxic in his upper extremities. Sensory is diminished throughout in a dependent manner. IMAGING: CT scan shows foraminal narrowing in the cervical spine, but there is no apparent significant spinal cord injury or edema. No fractures of the vertebral bodies. ASSESSMENT AND PLAN: I am seeing the patient for chronic cervical stenosis, weakness, but that is poorly evaluated right now. The imaging is not entirely clear. Recommendation would not be to initiate surgery or neurosurgical evaluation. Stabilization from a cardiovascular perspective. Outpatient PT, OT and rehabilitation evaluation and then repeat cervical spine MRI hopefully with some sedation, so we can get a better picture of the C-spine to see what degree of injury he is presenting with. Otherwise neurologically, no acute neurological changes at this time. I would initiate steroids at this time. It appear to be acute neurological injury to the spinal canal and given that make him clinically worse. MD [facility] /[id number]
--- NOTE | 2019-11-30 18:32 | NUR ---
PT SITTING UP IN BED, FAMILY AT BEDSIDE, NO COMPLAINTS AT THIS TIME.
--- NOTE | 2019-11-30 19:00 | NUR ---
RECEIVED PATIENT IN BEDSIDE SHIFT REPORT. PATIENT RESTING IN BED WITH FAMILY AT BEDSIDE. A&OX3 AT THIS TIME. PATIENT IS EATING, STILL HAVING DIFFICULTY SWALLOWING, SWALLOW STUDY PENDING. YAUNKER SUCTION USED WHEN PATIENT CANNOT SWALLOW ORAL SECRETIONS. THICKENED LIQUIDS BEING USED, PATIENT SEEMS TO TOLERATE THEM BETTER. NO PAIN REPORTED. NO S&S OF DISTRESS NOTED. PICKETT DRAINING CLEAR, YELLOW URINE TO GRAVITY, BAG HUNG BELOW BLADDER, OFF OF FLOOR. BOOTS FOR FOOT DROP ON FEET AT THIS TIME. BED LOCKED IN LOWEST POSITION, SIDE RAILS UPX2, CALL LIGHT IN REACH.
--- NOTE | 2019-11-30 20:00 | NUR ---
R FA 18G NOTED TO BE OCCLUDED. REMOVED. CATHETER TIP IN TACT, PRESSURE DRESSING APPLIED.
[2019-11-30] MEDS: ATORVASTATIN 10 MG TAB PO SCH (22:10)
[2019-11-30] MEDS: INSULIN GLARGINE 100 UNITS/ML VIAL SQ SCH (22:12)
[2019-12-01] VITALS (9 sets, daily range): BP systolic 136–165; BP diastolic 63–70
--- NOTE | 2019-12-01 01:33 | NUR ---
NEW IV PLACED, L FA 20G, FIRST ATTEMPT.
--- NOTE | 2019-12-01 05:20 | NUR ---
PICKETT CATHETER NOTED TO BE LEAKING. DEFLATED AND REINFLATED BALLOON, ADDED 5ML. URINE FLOWED MORE EASILY AFTER THE ADDITIONAL 5ML. PICKETT CARE PERFORMED AGAIN. WILL MONITOR.
[2019-12-01] MEDS: INSULIN LISPRO 100 UNIT/1 ML 3ML VIAL SQ SCH ×3 (07:45→16:30)
[2019-12-01] MEDS: INSULIN REGULAR, HUMAN 100 UNIT/1 ML 3ML VIAL SQ SCH ×4 (07:45→21:48)
[2019-12-01] MEDS: FINASTERIDE 5 MG TAB PO SCH (08:55)
[2019-12-01] MEDS: FUROSEMIDE INJ 10 MG/ML 4 ML VIAL IV SCH (08:55)
[2019-12-01] MEDS: ESCITALOPRAM OXALATE 10 MG TAB PO SCH (08:55)
[2019-12-01] MEDS: DOCUSATE SODIUM 100 MG CAP PO SCH ×2 (09:00→17:00)
[2019-12-01] MEDS: GUAIFENESIN 600 MG TAB PO SCH ×2 (09:00→17:00)
[2019-12-01] MEDS: TAMSULOSIN HCL 0.4 MG CAP PO SCH (09:00)
[2019-12-01] MEDS: ASPIRIN 81 MG CHEW TAB PO SCH (09:00)
[2019-12-01] MEDS: POTASSIUM CHLORIDE 20 MEQ TAB CR PO SCH (09:00)
--- NOTE | 2019-12-01 09:10 | NUR ---
pt eating breakfast, pt took some meds, then stated he did not want to take any more meds. granddaughter at bedside explaining to pt in portuguese reason for meds. pt continue to refuse
--- NOTE | 2019-12-01 09:26 | NUR ---
pt has coughing when swallowing food or water with thinken liquids.. pt family told to hold off with liquids until speech evaluates him. speech therapist called to f/u on swallow test ordered. pt will be seen today according to speech therapist.
--- NOTE | 2019-12-01 10:54 | NUR ---
called dr barton to inform him of pt bedside swallow study with speech. specch suggests tp make pt npo and order modified barium swallow
--- NOTE | 2019-12-01 12:42 | NUR ---
patient awake calm and responsive 54 96.8 151 / 68 awake aox3 rrr cta abd soft nt calm motor 4/5 in bue 4-/5 ble reflexes diminished a/p Delrium - acute on chronic- dementia w/ confusion weakness- cervical steonsis is not acute, will need pt and ot outpt neurosurgical eval but low likely guevara of needing surgical interventoin outpt emg congitive eval as outpt dysarthria - speech therapy
--- NOTE | 2019-12-01 13:37 | NUR ---
radiology and speech therapist at bedside. speech therapist states pt failed mbs and to keep npo. pt daughter verbalizes understanding
[2019-12-01] MEDS ORDERED: GADOBENATE DIMEGLUMINE 1 ML IV ONE (13:40)
--- NOTE | 2019-12-01 16:46 | Diagnostic Imaging Report ---
Modified barium swallow exam with speech pathology service, 12/01/2019 CLINICAL HISTORY: Coughing when swallowing Fluoro Time: 4.3 min. Estimated dose: 19.5 mGy SHAYY IMPRESSION: Please see the speech pathology service report for details. Barium contrast of multiple consistencies is given to the patient to swallow. Fluoroscopic observation is performed during swallowing. Axial penetration was noted with thin liquids, neck and thick liquids, and with the liquid portion of the texture. Trace silent aspiration was noted with thin liquids and thick liquids. Calcification above the hyoid bone is likely a submandibular sialolith. Signed by: Hawk Frye MD on 12/01/2019 4:44 PM
[2019-12-01] MEDS ORDERED: POTASSIUM CHLORIDE 20 MEQ TAB CR PO SCH (17:00)
[2019-12-01] MEDS: ENOXAPARIN SOD INJ 40 MG/0.4 ML SYR SC SCH (17:34)
[2019-12-01] MEDS: FUROSEMIDE 40 MG TAB PO SCH (17:34)
--- NOTE | 2019-12-01 17:40 | NUR ---
dr barton to see pt, dr barton told daughter pt can eat what he wants bc he recommends hospice care at home. explain to daughter pt is at risk for aspiration, daughter states she will wait on her sister to decide on peg or hospice care
--- NOTE | 2019-12-01 19:20 | NUR ---
REPORT RECEIVED FROM DAY NURSE. FAMILY AT BEDSIDE. PT AWAKE AND ALERT X2. RESPIRATIONS ARE EVEN AND UNLABORED.TELE MONITOR ON.CONTINUE TO NEED STOOL FOR OCCULT BLOOD X1. 20 G SL IN LEFT FOREARM. IV INTACT AND FLUSHES EASILY. PT USING YONKER TO SUCTION HIS MOUTH. PT ON HOSPICE - BUT PER REPORT MAY EAT FOR PLEASURE. PICKETT CATH TO GRAVITY. URINE SUGAR YELLOW IN COLOR. PT DENIES PAIN. PT TO HAVE MRI THIS AM.PT COUGH AFTER TAKE LIQUIDS BUT FAMILY, DR AND [facility] DECIDE PER REPORT TO PLACE PT IN HOSPICE. CALL LIGHT IS WITHIN REACH. BED IN LOW POSITION.
[2019-12-01] MEDS ORDERED: DIPHENHYDRAMINE HCL 25 MG CAP PO SCH (21:00)
[2019-12-01] MEDS: INSULIN GLARGINE 100 UNITS/ML VIAL SQ SCH (21:48)
[2019-12-01] MEDS: ATORVASTATIN 10 MG TAB PO SCH (21:54)
[2019-12-02 04:00] VITALS: BP 136/63
[2019-12-02] MEDS: FUROSEMIDE 40 MG TAB PO SCH ×2 (06:17→17:11)
[2019-12-02] MEDS: INSULIN REGULAR, HUMAN 100 UNIT/1 ML 3ML VIAL SQ SCH ×3 (07:30→17:14)
[2019-12-02] MEDS: INSULIN LISPRO 100 UNIT/1 ML 3ML VIAL SQ SCH ×3 (07:30→17:13)
[2019-12-02] MEDS: TAMSULOSIN HCL 0.4 MG CAP PO SCH ×2 (07:53→12:00)
[2019-12-02 08:00] VITALS: BP 154/74
[2019-12-02 08:08] VITALS: BP_SYST 142; BP_SYST 154; BP_DIAS 74; BP_DIAS 80
[2019-12-02] MEDS: DOCUSATE SODIUM 100 MG CAP PO SCH ×2 (09:00→17:11)
[2019-12-02] MEDS: GUAIFENESIN 600 MG TAB PO SCH ×2 (09:00→17:11)
--- NOTE | 2019-12-02 09:43 | NUR ---
CALLED DAUGHTERS DORY [phone] AND MARILUZ [phone] TO SPEAK WITH THEM ABOUT HOSPICE ORDER, LEFT VOICEMAIL TO RETURN CALL TO GET CHOICE.
--- NOTE | 2019-12-02 09:52 | NUR ---
DAUGHTER MARILUZ CALLED BACK AND STATES SHE IS AT WORK BUT IS IN AGREEMENT TO USE [facility], FILE CHOICE IN CHART. SHE STATES SHE IS AT WORK UNTIL 5PM SO IT WOULD BE BETTER FOR THEM TO SPEAK WITH DORY. FORWARDED FACESHEET AND ORDER TO REP FOR [facility].
--- NOTE | 2019-12-02 10:13 | NUR ---
EDUCATED ABOUT IMM, SIGNED, FILED IN CHART, WITH COPY LEFT WITH FAMILY AT BEDSIDE.
[2019-12-02 11:41] VITALS: BP 159/71
[2019-12-02] MEDS: FINASTERIDE 5 MG TAB PO SCH (11:42)
[2019-12-02] MEDS: ESCITALOPRAM OXALATE 10 MG TAB PO SCH (11:42)
[2019-12-02] MEDS: ASPIRIN 81 MG CHEW TAB PO SCH (11:42)
--- NOTE | 2019-12-02 15:26 | Diagnostic Imaging Report ---
MRI SPINE CERVICAL W HISTORY: Cervical spine stenosis COMPARISON: Noncontrast MRI of the cervical spine dated 11/29/2019; cervical spine CT 11/28/2019 TECHNIQUE: Sagittal and axial T1 fat-sat postcontrast images of the cervical spine Motion artifacts obscure some details. 18 mL of MultiHance were administered. FINDINGS: No enhancing abnormalities are seen in the cervical spine (marrow, epidural space, thecal sac, or cord). Otherwise, there are no significant changes when compared to MRI of the cervical spine dated 11/29/2019. Mild multilevel disc degeneration, most prominent at C5-C6, is better evaluated on prior cervical spine MRI. Minimal grade 1 anterolisthesis of C7 on T1 is likely due to facet arthrosis. Sialolith within an atrophic right submandibular gland is again noted. The soft tissues are otherwise unremarkable. IMPRESSION: No enhancing abnormalities in the cervical spine. Otherwise, no significant changes when compared to MRI of the cervical spine dated 11/29/2019. Signed by: Dr. Jared Gresham M.D. on 12/02/2019 3:23 PM
[2019-12-02 15:53] VITALS: BP 133/63
[2019-12-02] MEDS: ENOXAPARIN SOD INJ 40 MG/0.4 ML SYR SC SCH (17:11)
[2019-12-02] MEDS ORDERED: CITRATE OF MAGNESIA 300ML BOTTLE PO SCH (18:15)
--- NOTE | 2019-12-02 18:26 | NUR ---
Left FA IV discontinued. NO signs of infiltration noted. 2x2 gauze and tape placed. Taken via stretcher by EMS. AAOX2 to person and place. Respirations even and unlabored. All personal belongings taken with patient. Discharge instructions given to patient's daughter. No rx available at this time. Patient discharged with hospice.
[2019-12-03] MEDS ORDERED: POTASSIUM CHLORIDE 20 MEQ TAB CR PO SCH (09:00)
== END 2019-12-02 19:26 | disposition hospice, home (50) | DRG 308 ==
LOC: ER 11:15 → ERHOLD 15:39 → MED/SURG 11-29 16:18
DX: I47.2 Ventricular tachycardia (principal); I26.99 Other pulmonary embolism without acute cor pulmonale; I50.33 Acute on chronic diastolic (congestive) heart failure; F05 Delirium due to known physiological condition; S20.211A Contusion of right front wall of thorax, initial encounter; W01.0XXA Fall on same level from slipping, tripping and stumbling without subsequent striking against object, initial encounter; Y93.01 Activity, walking, marching and hiking; Y92.018 Other place in single-family (private) house as the place of occurrence of the external cause; I25.10 Atherosclerotic heart disease of native coronary artery without angina pectoris; M48.02 Spinal stenosis, cervical region; M21.372 Foot drop, left foot; M21.371 Foot drop, right foot; I89.0 Lymphedema, not elsewhere classified; L97.529 Non-pressure chronic ulcer of other part of left foot with unspecified severity; L97.519 Non-pressure chronic ulcer of other part of right foot with unspecified severity; R53.81 Other malaise; R32 Unspecified urinary incontinence; E11.69 Type 2 diabetes mellitus with other specified complication; F32.9 Major depressive disorder, single episode, unspecified; M54.12 Radiculopathy, cervical region; R47.1 Dysarthria and anarthria; F03.90 Unspecified dementia, unspecified severity, without behavioral disturbance, psychotic disturbance, mood disturbance, and anxiety; L89.629 Pressure ulcer of left heel, unspecified stage; L89.619 Pressure ulcer of right heel, unspecified stage
CPT/HCPCS: 36415; 51700; 70450; 71250; 72125; 72141; 72142; 74230; 80053; 80061; 81001; 82550; 82553; 82948; 83880; 84443; 84484; 85025; 85610; 85730; 93005; 93306; 93970; 94640; 99285; J1650; J1815; J1817; J1885; J1940; J2270